=== PATIENT | female | born 1935 | race Caucasian/White ===

== ENCOUNTER 2016-05-05 23:48 | Emergency (ER) | payer OTHER ==
[~2016-05-05] VITALS: Ht 162.6 cm; Wt 68.2 kg
[2016-05-05] MEDS ORDERED: SOD CHLORIDE 0.9% 500 ML IV STA (23:54)
[2016-05-05 23:57] VITALS: Ht 162.6 cm; Wt 68.2 kg
--- NOTE | 2016-05-06 00:26 | RADRPT ---
PROCEDURE: XR Chest. CLINICAL INDICATION: Chest Pain. TECHNIQUE: Single frontal chest x-ray. COMPARISON: None. FINDINGS: There is appearance of mild elevation of the right hemidiaphragm and mild right lower lung volume lo ss.There is minimal prominence of the lung interstitium likely minimal chronic changes.. The heart does not appear to be grossly enlarged. The patient is mildly rotated to the right. Calcification in the aortic arch.. IMPRESSION: 1. There is no acute cardiopulmonary process. Please see above. RPTAT: HJES .Isac Salinas MD, MD Date Time Electronically viewed and signed by .Isac Salinas MD, MD on 05/06/2016 00:26 .S/
[2016-05-06] MEDS ORDERED: LORAZEPAM 2 MG INJ IV ONE (02:00)
--- NOTE | 2016-05-06 02:00 | ERA ---
ER Documentation Chief Complaint Date/Time DATE: 05/06/16 TIME: 01:57 Chief Complaint CP,from [facility] independent living HPI 80-year-old female history of dementia who presents with a possible report of chest pain. HPI is very limited. It appears the patient was just discharged from [facility] to a possible board and care. However upon arrival to the boarding care the facility states that they cannot care for the patient. They stated that the patient complained of chest pain and 911 was called. The patient has dementia but denies any chest pain. Further history is very limited. No family available. ROS All systems reviewed and are negative except as per history of present illness. Allergies Allergies: Coded Allergies: aspirin (Verified Allergy, Unknown, 05/05/16) clindamycin (Verified Allergy, Unknown, 05/05/16) erythromycin base (Verified Allergy, Unknown, 05/05/16) FmHx Family History: No diabetes Physical Exam Vitals Vital Signs Date Time Temp Pulse Resp B/P Pulse Ox O2 Delivery O2 Flow Rate FiO2 05/05/16 23:57 97.8 104 18 174/80 96 Physical Exam General: Well developed, well nourished, no acute distress, dementia, short is on backwards Head: Normocephalic, atraumatic. Eyes: Pupils equally reactive, EOM intact ENT: Moist mucous membranes Neck: Supple, no lymphadenopathy Respiratory: Lungs clear bilaterally, no distress Cardiovascular: RRR, no murmurs, rubs, or gallops Abdominal: Soft, non-tender, non-distended, no peritoneal signs : Deferred MSK: No edema, no unilateral swelling, 5/5 strength Neurologic: Alert and oriented to person alone, moving all extremities, normal speech, no focal weakness, no cerebellar signs Skin: No rash Psych: Normal mood Result Diagram: 05/06/16 0110 05/06/16 0110 Results 24 hrs Laboratory Tests Test 05/06/16 01:10 Activated Partial Thromboplast Time 25.9Sec Anion Gap 18 Basophils # 0.010^3/ul Basophils % 0.1% Blood Morphology Comment Blood Urea Nitrogen 20mg/dl Calcium Level 9.2mg/dl Carbon Dioxide Level 24mmol/L Chloride Level 105mmol/L Creatinine 0.63mg/dl Eosinophils # 0.210^3/ul Eosinophils % 2.5% Glucose Level 129mg/dl Hematocrit 34.7% Hemoglobin 11.7g/dl INR International Normalized Ratio 0.97 Lymphocytes # 1.310^3/ul Lymphocytes % 13.3% Mean Corpuscular Hemoglobin 28.8pg Mean Corpuscular Hemoglobin Concent 33.6g/dl Mean Corpuscular Volume 85.9fl Mean Platelet Volume 8.0fl Monocytes # 0.810^3/ul Monocytes % 8.0% Neutrophils # 7.210^3/ul Neutrophils % 76.1% Nucleated Red Blood Cells # 0.010^3/ul Nucleated Red Blood Cells % 0.0/100WBC Platelet Count 63555^3/UL Potassium Level 3.5mmol/L Prothrombin Time 12.9Sec Prothrombin Time Ratio 1.0 Red Blood Count 4.0510^6/ul Red Cell Distribution Width 19.2% Sodium Level 143mmol/L Troponin I 0.033ng/ml White Blood Count 9.510^3/ul Current Medications Medications (Trade) Dose Ordered Sig/Ankit Route PRN Reason Start Time Stop Time Status Last Admin Dose Admin Sodium Chloride (NS) 500 ml @ 500 mls/hr Q1H STAT IV 05/05/16 23:54 05/06/16 00:53 DC 05/05/16 23:54 Lorazepam (Ativan) 0.5 mg ONCE ONCE IV 05/06/16 02:00 05/06/16 02:01 DC 05/06/16 02:00 Procedures/MDM EKG, MONITORS, & DIAGNOSTIC IMAGING: EKG: I reviewed and interpreted a 12-lead EKG. Rhythm: Normal sinus rhythm Ectopy: None Intervals: No abnormalities ST segments: No elevations or depressions T waves: No contiguous inversions Repeat EKG: EKG: I reviewed and interpreted a 12-lead EKG. Rhythm: Normal sinus rhythm Ectopy: None Intervals: No abnormalities ST segments: No elevations or depressions T waves: No contiguous inversions Chest x-ray: I reviewed and interpreted a 1 view of the chest Mediastinum: No enlargement Cardiac silhouette: No cardiomegaly Airspace: Clear lung lomeli bilaterally without evidence of pneumothorax Bones: No evidence of fracture LAB INTERPRETATION: Negative troponin MEDICAL DECISION MAKING: The patient's history, physical exam and clinical presentation is concerning for possible cardiogenic etiology and acute coronary syndrome. However I am not convinced that the patient necessarily had chest pain. It appears the patient was recently released from [facility] and discharged to a boarding care. This seems more of a social visit given that the boarding care cannot actually care for the patient. Based on the patient's clinical exam and history and risk factors, I have a much lower clinical concern for pulmonary embolism, acute aortic dissection, pneumothorax, pneumonia, cardiac tamponade But if negative I would consider transferring back to [facility] for placement. ER COURSE: The patient has been agitated and continues to try and get up out of bed. A gentle dose of Ativan 0.5 mg provided. I kept the patient and/or family informed of laboratory and diagnostic imaging results throughout the emergency room course. DISPOSITION PLAN: Transfer to [place] CONSULTATION: [facility] provider was notified and has accepted the patient. Accepting doctor is Dr. Castrejon, patient will be transferred to [facility] Diagnosis: Primary Impression: Chest pain Qualified Code: R07.9 - Chest pain, unspecified type Additional Impression: Encephalopathy chronic Condition: RICHARDSON Mathews MD May 06, 2016 02:00
[2016-05-06 02:07] LABS: POTASSIUM 3.5 mmol/L (3.5-5.1)
[2016-05-06 02:09] LABS: CREATININE 0.63 mg/dl (0.44-1.00)
[2016-05-06 02:10] LABS: CALCIUM 9.2 mg/dl (8.4-10.2)
[2016-05-06 02:17] LABS: INR 0.97; PROTIME 12.9 Sec (12.2-14.2)
[2016-05-06 02:18] LABS: PARTIAL THROMBOPLASTIN TIME 25.9 Sec (25.0-35.0)
[2016-05-06 02:22] LABS: TROPONIN-I 0.033 ng/ml (0.00-0.12)
[2016-05-06 02:27] LABS: BASOPHILS % 0.1 % (0.0-2.0); EOSINOPHILS # 0.2 10^3/ul (0.0-0.5); EOSINOPHILS % 2.5 % (0.0-7.0); HEMATOCRIT 34.7 % (37.0-47.0); HEMOGLOBIN 11.7 g/dl (12.0-16.0); LYMPHOCYTES # 1.3 10^3/ul (0.8-2.9); LYMPHOCYTES % 13.3 % (15.0-51.0); MEAN CORPUSCULAR HEMOGLOBIN 28.8 pg (29.0-33.0); MEAN CORPUSCULAR HGB CONC 33.6 g/dl (32.0-37.0); MEAN CORPUSCULAR VOLUME 85.9 fl (82.0-101.0); MONOCYTE # 0.8 10^3/ul (0.3-0.9); NEUTROPHIL # 7.2 10^3/ul (1.6-7.5); NEUTROPHILS % 76.1 % (39.0-77.0); PLATELET COUNT 216 10^3/UL (140-440); RED BLOOD COUNT 4.05 10^6/ul (4.20-5.40); RED CELL DISTRIBUTION WIDTH 19.2 % (11.5-14.5); UNCORRECTED WBC 9.5 10^3/ul (4.8-10.8); WHITE BLOOD COUNT 9.5 10^3/ul (4.8-10.8)
[2016-05-06 02:33] LABS: CONDITION 1; LH ANALYZER COMMENTS 1
[2016-05-06 04:11] VITALS: BP 105/71; PULSE 87; RESP 20
== END 2016-05-06 04:55 | disposition short-term general hospital (02) ==
LOC: E/R 23:48
DX: R07.9 Chest pain, unspecified (principal); I10 Essential (primary) hypertension; E11.9 Type 2 diabetes mellitus without complications; G93.40 Encephalopathy, unspecified
CPT/HCPCS: 71010; 80048; 84484; 85025; 85610; 85730; 93005; 96361; 96374; 99285; J2060; J7040